=== PATIENT | female | born 1975 | race Caucasian/White ===

== ENCOUNTER 2018-03-19 07:37 | Day surgery (SDC) | payer OTHER ==
[2018-03-19] VITALS (15 sets, daily range): BP systolic 115–142; BP diastolic 61–88; PULSE 66–97; RESP 16–42; Ht 157.5 cm; Wt 74.5 kg
[~2018-03-19] VITALS: Ht 157.5 cm; Wt 74.5 kg
[~2018-03-19 07:37] MED LIST: DESFLURANE 15 MIN ONE; FERR27TA PO; GLYCOPYRROLATE 0.4 MG INJ ONE; MAG-19 PO; PREN1TAB49 PO
[2018-03-19] MEDS ORDERED: OMEP40CA6 PO (08:26)
--- NOTE | 2018-03-19 09:04 | PREAC ---
Date/Time of Note Date/Time of Note DATE: 03/19/18 TIME: 09:03 Anesthesia Eval and Record Evaluation Time Pre-Procedure Interview DATE: 03/19/18 TIME: 09:03 Age 42 Sex female NPO: 8 hrs Preoperative diagnosis R Ankle Pain Planned procedure R Ankle Arthroscopy Past Medical History Past Medical History: Includes Cardio: HTN GI: GERD Surgery & Anesthesia Issues No known issue Meds Anticoagulation: No Beta Tessa within 24 hr: No Reason Beta Tessa not given: Pt. not on B-Tessa Reported Medications Omeprazole* (Omeprazole*) 40 Mg Capsule.dr, 40 MG PO DAILY, #30 CAP 03/19/18 Discontinued Reported Medications Magaldrate/Simethicone* (Mylanta*) 355 Ml Susp, 355 ML PO PRN 01/18/12 Ferrous Sulfate (Iron) 1 Tab Tablet, 1 TAB PO BID 01/18/12 Vits W-Ca,Fe,Fa(<1MG) () 1 Tab Tablet, 1 TAB PO DAILY 01/18/12 Vits W-Ca,Fe,Fa(<1MG) () 1 Tab Tablet, 1 TAB PO DAILY 01/18/12 Ferrous Sulfate (Iron) 1 Tab Tablet, 1 TAB PO 10/29/11 Vits W-Ca,Fe,Fa(<1MG) () 1 Tab Tablet, 1 TAB PO 10/29/11 Meds reviewed: Yes Allergies Coded Allergies: No Known Drug Allergy (Unverified Allergy, Unknown, 03/19/18) Allergies Reviewed: Yes Labs/Studies Labs Reviewed: Reviewed by anesthesiologist test: Negative Studies: ECG Pre-procedure Exam Last vitals Vital Signs Date Temp Pulse Resp B/P (MAP) Pulse Ox O2 O2 Flow FiO2 Time Delivery Rate 03/19/18 98.6 69 16 141/88 96 Room Air 08:28 (105) Airway: Adequate mouth opening, Adequate thyromental dist Mallampati: Mallampati II Teeth: Normal Lung: Normal Heart: Normal ASA Physical Status ASA physical status: 2 Emergency: None Planned Anesthetic General/MAC: ETT, LMA Pre-operative Attestations Prior to commencing anesthesia and surgery, the patient was re-evaluated, there was verification of: *The patient's identity *The results of appropriate recent lab work and preoperative vital signs *The above evaluation not changing prior to induction *Anesthetic plan, risk benefits, alternative and complications discussed with patient/family; questions answered; patient/family understands, accepts and wishes to proceed. UNIQUE ALDRIDGE Mar 19, 2018 09:04
--- NOTE | 2018-03-19 09:17 | HPN ---
Date/Time of Note Date/Time of Note DATE: 03/19/18 TIME: 09:17 Interval H&P Admission Note Pt. seen H&P reviewed: No system changes ROGERS PICHARDO DPM Mar 19, 2018 09:17
[2018-03-19] MEDS ORDERED: ROPIVACAINE 0.5 % 30 ML VIAL ONE (09:26)
[2018-03-19] MEDS ORDERED: MIDAZOLAM 1 MG/ML 2 ML INJ ONE (09:26)
[2018-03-19] MEDS ORDERED: FENTAnyl 50 MCG/ML VIAL ONE (09:26)
[2018-03-19] MEDS ORDERED: ALBUTEROL 0.083% (NEB) 2.5 MG/3 ML AMP HHN PRN (09:30)
[2018-03-19] MEDS ORDERED: FENTAnyl 50 MCG/ML VIAL IV PRN ×3 (09:30)
[2018-03-19] MEDS ORDERED: MEPERIDINE 25 MG INJ IV PRN (09:30)
[2018-03-19] MEDS ORDERED: DIPHENHYDRAMINE 50 MG INJ IV PRN (09:30)
[2018-03-19] MEDS ORDERED: METOCLOPRAMIDE 10 MG INJ IV PRN (09:30)
[2018-03-19] MEDS ORDERED: HYDROmorphONE 1 MG/5 ML IV SYRINGE IV PRN ×3 (09:30)
[2018-03-19] MEDS ORDERED: ONDANSETRON 4 MG INJ IV PRN (09:30)
[2018-03-19] MEDS ORDERED: PROPOFOL 20 ML ONE (09:50)
[2018-03-19] MEDS ORDERED: NEOSTIGMINE 3 MG/3 ML SYRINGE ONE (09:50)
[2018-03-19] MEDS ORDERED: CEFAZOLIN 1 GM INJ ONE (09:50)
[2018-03-19] MEDS ORDERED: SUCCINYLCHOLINE CHLORIDE 100 MG/5 ML SYG IV ONE (09:50)
[2018-03-19] MEDS ORDERED: LIDOCAINE 100 MG SYRINGE ONE (09:50)
[2018-03-19] MEDS ORDERED: ROCURONIUM 50 MG INJ ONE (09:50)
[2018-03-19] MEDS ORDERED: BUPIVACAINE 0.5%/EPI (SDV) 30 ML INJ ONE (10:51)
--- NOTE | 2018-03-19 11:10 | OPPN ---
Date/Time of Note Date/Time of Note DATE: 03/19/18 TIME: 11:07 Operative Report Preoperative Diagnosis Right ankle degenerative joint disease Chronic right ankle pain Postoperative Diagnosis Right ankle degenerative joint disease Chronic right ankle pain Osteochondral defect of the right talus Operation/Procedure Performed Right ankle arthroscopy Right ankle debridement arthroscopically Repair of right talus osteochondral defect arthroscopically Application of posterior splint right lower extremity Surgeon see signature line insurance assistant None Anesthesia: general Estimated blood loss: 0 - 10 ml's Transfusion Required none Specimen Bony fragment right ankle joint Grafts/Implants none Complications none ROGERS PICHARDO DPM Mar 19, 2018 11:09
--- NOTE | 2018-03-19 12:08 | PAC ---
Date/Time of Note Date/Time of Note DATE: 03/19/18 TIME: 12:08 Post-Anesthesia Notes Post-Anesthesia Note Last documented vital signs Vital Signs Date Temp Pulse Resp B/P (MAP) Pulse Ox O2 O2 Flow FiO2 Time Delivery Rate 03/19/18 98.0 11:14 03/19/18 97 20 125/73 100 Mask 8.0 11:09 (90) Activity: WNL Respiratory function: WNL Cardiovascular function: WNL Mental status: Baseline Pain reasonably controlled: Yes Hydration appropriate: Yes Nausea/Vomiting absent: Yes UNIQUE ALDRIDGE Mar 19, 2018 12:08
--- NOTE | 2018-03-20 08:07 | OPR ---
DATE OF OPERATION: 03/19/2018 PREOPERATIVE DIAGNOSES: 1. Right ankle degenerative joint disease. 2. Right ankle chronic pain. 3. Possible osteochondral defect of the right talus. POSTOPERATIVE DIAGNOSES: 1. Right ankle degenerative joint disease. 2. Right ankle chronic pain. 3. Possible osteochondral defect of the right talus. OPERATIONS PERFORMED: 1. Right ankle arthroscopy with debridement. 2. Right ankle arthroscopic repair of osteochondral defect. 3. Application of posterior splint. SURGEON: Nawaf Diaz DPM MACHINE INKER: None. ANESTHESIA: General. ESTIMATED BLOOD LOSS: Less than 20 mL. HEMOSTASIS: Pneumatic thigh tourniquet. Procedure in detail: Indications for surgery: This is a pleasant 42-year-old female patient who suffers from chronic right ankle pain and has had multiple injections with no relief of pain. She reports pain with all types of activities and all types of shoes. She is seeking surgical management at this time. Recommended procedure is right ankle arthroscopy with debridement and exploration with possible repair of osteochondral defect of the talus. Risks and complications of this type surgery was discussed with patient in great detail including but not limited to postoperative pain, postoperative disability, chronic pain and disability, gait disturbance, failure of procedure to correct the problem, need for additional surgical procedures, possible need for total ankle replacement, deep venous thrombosis, limb loss and loss of life. The patient understands the discussion and agrees to the procedure. An informed consent was obtained, signed and placed in the chart. No guarantee or warranty was given or implied as to the outcome of the procedure either and verbal or written form. Procedure in detail: The patient was seen in the preoperative area. Proposed surgery was discussed with patient in great detail. Opportunity was given to patient to ask questions and all questions were answered. Patient acknowledges understanding of the discussion. An informed consent was obtained. Patient was then taken to the operating room and was placed on the operative table in supine position. General anesthesia was given by the anesthesiologist. A thigh tourniquet was applied to the right thigh. The right lower extremity was scrubbed, prepped and draped in the usual aseptic manner. An ankle distractor was applied to the table. Attention was directed to the right ankle. The anatomical landmarks were identified and marked. A lateral anterior portal was started with a #11 blade followed by blunt dissection into the portal site using a Margot. The obturator and trocar was inserted into the ankle joint and the scope was inserted. The joint was surveyed from medial to lateral and pictures were obtained. Significant synovitis was noted along with significant cartilage damage of the talus along with an osteochondral defect on the dorsal medial aspect of the talus. Further survey was done. A medial anterior portal was created in a similar fashion. The shaver was inserted and debridement commenced. After debridement, I surveyed the joint from lateral to medial and pictures were obtained. Next, the scope was inserted into the lateral anterior portal and instrumentation on to the medial portal. The osteochondral defect was then found and loose cartilage was removed. A bur was inserted and the area of the defect was burred until I reached the subchondral bone. I used a 90 degree bone picks to create holes in the dome of the talus in the area of the defect. Bleeding noted. Next, the joint was then further evaluated and no further procedure was deemed necessary. All instrumentation was removed from the ankle joint. A 5-0 Monocryl suture was used to close the anteromedial and anterolateral portals in simple suture technique. Postoperative injection of 0.5% Marcaine with epinephrine was injected. Sterile dressing was applied to the right ankle. The thigh tourniquet was deflated at this time and prompt hyperemic response was noted to the digits of the right foot. Patient Aamir the procedure and anesthesia well. She was transferred to the recovery with vital signs stable and vascular status intact to the right lower extremity. The patient will be discharged home with postop orders to include nonweightbearing on the right lower extremity. Prescription was submitted to the pharmacy. Patient will be seen in 1 week in my office for postop follow-up. Dictated By: NAWAF FROST Conf#: [id number] DID#: [id number] MTDD
== END 2018-03-19 13:00 | disposition home or self-care (01) ==
LOC: SDS 07:37
PROVIDERS: ATTEND Podiatrist Foot & Ankle Surgery
DX: M19.071 Primary osteoarthritis, right ankle and foot (principal)
CPT/HCPCS: 29891; 73610; 88304; 88311; J0690; J1170; J2001; J2175; J2250; J2405; J2710; J2795; J3010; Z7512; Z7610